=== PATIENT | female | born 1975 | race Two or more races ===

== ENCOUNTER 2025-02-28 15:39 | Inpatient (IN) | payer OTHER ==
[~2025-02-28] VITALS: Ht 162.6 cm; Wt 63.1 kg
[2025-02-28] MEDS ORDERED: MAGNESIUM HYDROXIDE 30 ML UDC PO PRN (18:00)
[2025-02-28] MEDS ORDERED: ACETAMINOPHEN 325 MG TABLET PO PRN (18:00)
[2025-02-28] MEDS ORDERED: ONDANSETRON HCL/PF 4 MG/2 ML VIAL IVP PRN (18:00)
[2025-02-28] MEDS ORDERED: MAG HYDROX/AL HYDROX/SIMETH 30 ML UDC PO PRN (18:00)
[2025-02-28] MEDS ORDERED: NITROGLYCERIN 0.4 MG/TAB BOTTLE SL PRN (18:00)
[2025-02-28 19:15] LABS: PLATELET COUNT (AUTO) 236 K/uL (150-450); RED BLOOD CELL COUNT(AUTO) 3.49 MIL/uL (4.0-5.2); RED CELL DISTRIBUTION WIDTH 16.2 % (11.5-15.0); WHITE BLOOD COUNT (AUTO) 6.1 K/uL (4.3-11.0)
[2025-02-28 19:30] VITALS: BP 131/68; TEMP 97.9; O2SAT 98
[2025-02-28 19:40] LABS: CALCIUM, SERUM 8.0 mg/dL (8.5-10.1); CREATININE 2.1 mg/dL (0.6-1.3); PHOSPHORUS 3.6 mg/dL (2.5-4.9); SODIUM SERUM 140 mmol/L (136-145); UREA NITROGEN, BLOOD 29 mg/dL (7-18)
[2025-02-28 20:00] VITALS: BP 131/68; TEMP 97.9; O2SAT 98
[2025-02-28] MEDS: FUROSEMIDE 20 MG/2 ML VIAL IV SCH (21:24)
[2025-02-28] MEDS: HEPARIN SODIUM, PORCINE 5000 UNITS/1 ML VIAL SQ SCH (21:25)
[2025-02-28] MEDS: BLOOD SUGAR DIAGNOSTIC 1 EACH STRIP IN SCH (22:43)
[2025-03-01] VITALS (7 sets, daily range): BP systolic 122–171; BP diastolic 65–88; TEMP 97.8–98.2; O2SAT 96–98
[2025-03-01 07:06] LABS: PLATELET COUNT (AUTO) 220 K/uL (150-450); RED BLOOD CELL COUNT(AUTO) 3.09 MIL/uL (4.0-5.2); RED CELL DISTRIBUTION WIDTH 16.2 % (11.5-15.0); WHITE BLOOD COUNT (AUTO) 5.5 K/uL (4.3-11.0)
[2025-03-01 07:28] LABS: CALCIUM, SERUM 7.7 mg/dL (8.5-10.1); CREATININE 2.2 mg/dL (0.6-1.3); PHOSPHORUS 4.0 mg/dL (2.5-4.9); SODIUM SERUM 139.0 mmol/L (136-145); UREA NITROGEN, BLOOD 28.0 mg/dL (7-18)
[2025-03-01] MEDS: PANTOPRAZOLE 40 MG TABLET.DR PO SCH (07:34)
[2025-03-01 08:02] LABS: LDL 107.0 mg/dL (0-99)
[2025-03-01] MEDS ORDERED: FURO40TA5 PO (08:02)
[2025-03-01] MEDS ORDERED: SITA50TA PO (08:02)
[2025-03-01] MEDS ORDERED: LOSA25TA27 PO (08:02)
[2025-03-01] MEDS ORDERED: HYDR-4076 PO (08:02)
[2025-03-01] MEDS ORDERED: INSU100I26 SQ (08:02)
[2025-03-01] MEDS: FUROSEMIDE 100 MG/10 ML VIAL IV SCH (10:23)
[2025-03-01] MEDS: ATORVASTATIN 10 MG TABLET PO SCH (10:23)
[2025-03-01] MEDS: ASPIRIN 81 MG TAB.CHEW PO SCH (10:24)
[2025-03-01 10:57] LABS: IRON, SERUM 27.0 ug/dl (50-175)
[2025-03-01] MEDS: INSULIN REGULAR, HUMAN 100 UNIT/ML 3 ML VIAL SQ PRN (11:49)
[2025-03-01 14:23] LABS: APPEARANCE,URINE CLEAR (CLEAR); BLOOD, URINE 1+ Ery/uL (NEGATIVE); LEUKOCYTE ESTERASE ,URINE 1+ (NEGATIVE); NITRITE, URINE NEGATIVE (NEGATIVE); UGLUCOSE TRACE mg/dL (NEGATIVE)
[2025-03-01 14:26] LABS: PREGNANCY TEST URINE QUAL NEGATIVE (NEGATIVE)
[2025-03-01 14:39] LABS: ADD URINE CULTURE YES
[2025-03-01 14:40] LABS: CREATININE, URINE 20.0 MG/DL (30.0-125.0); URINE SODIUM, RANDOM 130.0 mmol/l (40-220); URINE TOTAL PROTEIN 182.8 mg/dL (0-11.9)
[2025-03-01] MEDS: SOD FERRIC GLUC 125 MG in IV NS 0.9% 100 ML IV SCH (14:58)
[2025-03-01 15:02] LABS: EOSINOPHIL,URINE None Seen
[2025-03-01] MEDS: hydrALAZINE HCL IV 20 MG VIAL IV PRN (16:38)
[2025-03-01] MEDS: INSULIN GLARGINE, 100 UNIT/ML CARTRIDGE SQ SCH (21:46)
[2025-03-02] VITALS (7 sets, daily range): BP systolic 119–186; BP diastolic 60–92; TEMP 97.3–98.2; O2SAT 95–100
[2025-03-02 06:23] LABS: PLATELET COUNT (AUTO) 212 K/uL (150-450); RED BLOOD CELL COUNT(AUTO) 3.13 MIL/uL (4.0-5.2); RED CELL DISTRIBUTION WIDTH 16.4 % (11.5-15.0); WHITE BLOOD COUNT (AUTO) 5.1 K/uL (4.3-11.0)
[2025-03-02 07:49] LABS: ASPARTATE AMINOTRANSFERASE 31 U/L (15-37); CALCIUM, SERUM 7.8 mg/dL (8.5-10.1); CREATININE 2.4 mg/dL (0.6-1.3); PHOSPHORUS 4.3 mg/dL (2.5-4.9); SODIUM SERUM 138 mmol/L (136-145); TOTAL PROTEIN, SERUM 4.7 g/dL (6.4-8.2); UREA NITROGEN, BLOOD 29 mg/dL (7-18)
[2025-03-02 07:54] LABS: CREATINE KINASE, TOTAL 492 U/L (26-192)
[2025-03-02] MEDS: FUROSEMIDE 100 MG/10 ML VIAL IV SCH (08:50)
[2025-03-02] MEDS: METOLAZONE 2.5 MG TABLET PO SCH (08:51)
[2025-03-02] MEDS: ALBUMIN 25% 12.5 GM in PREMIX 1 EA IV ONE (09:27)
[2025-03-03 04:57] VITALS: BP 155/79; TEMP 98.1; O2SAT 96
[2025-03-03 07:30] VITALS: BP 153/77; TEMP 98.2; O2SAT 94
[2025-03-03 08:25] LABS: PLATELET COUNT (AUTO) 113 K/uL (150-450); RED BLOOD CELL COUNT(AUTO) 3.00 MIL/uL (4.0-5.2); RED CELL DISTRIBUTION WIDTH 17.8 % (11.5-15.0); WHITE BLOOD COUNT (AUTO) 2.9 K/uL (4.3-11.0)
[2025-03-03 09:08] LABS: ASPARTATE AMINOTRANSFERASE 44 U/L (15-37); CALCIUM, SERUM 7.8 mg/dL (8.5-10.1); CREATININE 0.5 mg/dL (0.6-1.3); PHOSPHORUS 3.2 mg/dL (2.5-4.9); SODIUM SERUM 133 mmol/L (136-145); TOTAL PROTEIN, SERUM 5.5 g/dL (6.4-8.2); UREA NITROGEN, BLOOD 7 mg/dL (7-18)
[2025-03-03 16:00] VITALS: BP 148/73; TEMP 97.3; O2SAT 97
[2025-03-03 20:00] VITALS: BP 172/81; TEMP 97.3; O2SAT 98
[2025-03-04] VITALS: BP 104/52; TEMP 98.1; O2SAT 95
[2025-03-04] MEDS: DEXTROSE 50%-WATER 50 ML DISP.SYRIN IV PRN (03:42)
[2025-03-04 04:00] VITALS: BP 118/66; TEMP 97.5; O2SAT 97
[2025-03-04 05:08] LABS: PTH, INTACT 39 pg/mL (15-65)
[2025-03-04 06:47] LABS: PLATELET COUNT (AUTO) 240 K/uL (150-450); RED BLOOD CELL COUNT(AUTO) 3.45 MIL/uL (4.0-5.2); RED CELL DISTRIBUTION WIDTH 16.8 % (11.5-15.0); WHITE BLOOD COUNT (AUTO) 6.0 K/uL (4.3-11.0)
[2025-03-04 06:48] LABS: INR 0.98 (0.91-1.10)
[2025-03-04 07:02] LABS: CALCIUM, SERUM 8.4 mg/dL (8.5-10.1); CREATININE 2.8 mg/dL (0.6-1.3); PHOSPHORUS 4.7 mg/dL (2.5-4.9); SODIUM SERUM 141.0 mmol/L (136-145); UREA NITROGEN, BLOOD 30.0 mg/dL (7-18)
[2025-03-04 07:30] VITALS: BP 148/72; TEMP 98.1; O2SAT 100
[2025-03-04] MEDS: POTASSIUM CHLORIDE 20 MEQ TAB.PRT.SR PO ONE (09:36)
[2025-03-04 16:00] VITALS: BP 131/74; TEMP 98.2; O2SAT 98
[2025-03-04 18:25] LABS: PROTEIN, BODY FLUID 1.3 G/DL
[2025-03-04 18:32] LABS: WBC, BODY FLUID 76 /cu. mm. (0-200)
[2025-03-04 18:40] LABS: APPEARANCE,SPUN,BODY FLUID CLEAR (CLEAR); TOTAL VOLUME,BODY FLUID 1355 mL
[2025-03-04 20:00] VITALS: BP 158/79; TEMP 97.7; O2SAT 97
[2025-03-04 20:18] LABS: MACROPHAGES, BODY FLUID 50
[2025-03-05] VITALS: BP 143/82; TEMP 98.8; O2SAT 95; O2SAT 96
[2025-03-05 04:00] VITALS: BP 132/72; TEMP 99.3; O2SAT 97
[2025-03-05 07:15] LABS: PLATELET COUNT (AUTO) 258 K/uL (150-450); RED BLOOD CELL COUNT(AUTO) 3.25 MIL/uL (4.0-5.2); RED CELL DISTRIBUTION WIDTH 16.5 % (11.5-15.0); WHITE BLOOD COUNT (AUTO) 8.0 K/uL (4.3-11.0)
[2025-03-05 07:51] LABS: CALCIUM, SERUM 7.5 mg/dL (8.5-10.1); CREATININE 2.8 mg/dL (0.6-1.3); PHOSPHORUS 3.5 mg/dL (2.5-4.9); SODIUM SERUM 141.0 mmol/L (136-145); UREA NITROGEN, BLOOD 31.0 mg/dL (7-18)
[2025-03-05 08:00] VITALS: BP 133/87; TEMP 98.2; O2SAT 96
[2025-03-05 08:12] LABS: COMPLEMENT C3, SERUM 102 mg/dL (82-167); COMPLEMENT C4, SERUM 25 mg/dL (12-38)
[2025-03-05 13:09] LABS: *ANA ANTI-CENTROMERE B AB <0.2 AI (0.0-0.9); *ANA ANTI-DNA(DS) AB, QN 1 IU/mL (0-9); *ANA ANTI-JO-1 <0.2 AI (0.0-0.9); *ANA ANTICHROMATIN ANTIBODY <0.2 AI (0.0-0.9); *ANA RNP ANTIBODIES <0.2 AI (0.0-0.9); *ANA SJOGREN'S ANTI-SS-A 0.8 AI (0.0-0.9); *ANA SJOGREN'S ANTI-SS-B <0.2 AI (0.0-0.9); *ANAANTI-SCLERODERMA-70 AB <0.2 AI (0.0-0.9); *ANASMITH AB <0.2 AI (0.0-0.9)
[2025-03-06 10:10] LABS: *ANCA ATYPICAL p-ANCA <1:20 titer (Neg:<1:20); *ANCA CYTOPLASMIC (C-ANCA) <1:20 titer (Neg:<1:20); *ANCA PERINUCLEAR (P-ANCA) <1:20 titer (Neg:<1:20)
== END 2025-03-05 10:55 | disposition home or self-care (01) | DRG 194 ==
LOC: TELE 17:45
PROVIDERS: ADMIT Nurse Practitioner Family; ATTEND Nurse Practitioner Acute Care
PROC: 0W993ZZ Drainage of Right Pleural Cavity, Percutaneous Approach (ICD-10-PCS; principal; 2025-03-04)
DX: I13.0 Hypertensive heart and chronic kidney disease with heart failure and stage 1 through stage 4 chronic kidney disease, or unspecified chronic kidney disease (principal); N17.0 Acute kidney failure with tubular necrosis; E88.09 Other disorders of plasma-protein metabolism, not elsewhere classified; J90 Pleural effusion, not elsewhere classified; I21.A1 Myocardial infarction type 2; D50.9 Iron deficiency anemia, unspecified; E11.22 Type 2 diabetes mellitus with diabetic chronic kidney disease; I16.0 Hypertensive urgency; N18.9 Chronic kidney disease, unspecified; I50.33 Acute on chronic diastolic (congestive) heart failure; E78.5 Hyperlipidemia, unspecified; Z91.199 Patient's noncompliance with other medical treatment and regimen due to unspecified reason; E83.89 Other disorders of mineral metabolism
CPT/HCPCS: 36415; 71045-TC; 76770-TC; 80048-TC; 80053-TC; 80061-TC; 81001; 82550-TC; 82553; 82570-TC; 82728-TC; 82962-TC; 83520; 83540-TC; 83735-TC; 83880; 83970; 84100-TC; 84155; 84165; 84300-TC; 84439-TC; 84443-TC; 84484-TC; 84703-TC; 85025-TC; 85610-TC; 85652-TC; 86225; 86235; 86256; 86803; 87070-TC; 87075-TC; 87086-TC; 87102-TC; 87340; 88108-TC; 88305-TC; 89051-TC; 93307-TC; A4216; A4223; G0378; J0360; J1644; J1815; J1938; J2916; J7030; P9047